=== PATIENT | female | born 1985 | race Caucasian/White ===

== ENCOUNTER → 2017-04-16 | Outpatient (CLI) | payer SELFPAY ==
--- NOTE | 2017-04-17 07:20 | ECHO ---
DATE OF PROCEDURE: 04/16/2017 REFERRING PHYSICIAN: Dr. aKte Zimmer PATIENT LOCATION: Outpatient. REASON FOR CARDIOGRAM: Heart murmur. 2D MEASUREMENT: IVS - 0.77 cm LV - 3.7 cm LVPW - 0.85 cm LA - 3.0 cm Aorta 2.5 cm DOPPLER MEASUREMENTS: Peak velocity across the aortic valve - 1.2 m/s Peak velocity across the LVOT - 0.92 m/s Kay E 0.84, Mitral A - 0.34 with a ratio of 2.5 Maximum tricuspid valve velocity - 2.3 m/s 2D COMMENTS: 1. Normal left ventricular size, wall thickness and normal global left ventricular systolic function. The estimated left ventricular systolic ejection fraction is 60-65%. 2. Normal left atrium. Normal right atrium and right ventricle. 3. The atrial septum appeared to be normal without evidence of defect or shunt. 4. Normal aortic root. 5. No pericardial effusion seen. 6. Aortic valve, mitral valve, tricuspid valve appear to be normal. The proximal pulmonary artery branches and the pulmonic valve were not well visualized. DOPPLER: It detects mild mitral regurgitation, mild tricuspid regurgitation. The calculated pulmonary artery systolic pressure is about 30 mmHg. Assessment of left ventricular diastolic function was normal. IMPRESSION: 1. Normal global left ventricular systolic and diastolic function. 2. Mild mitral regurgitation. 3. Mild tricuspid regurgitation with probably mild pulmonary hypertension. MTDD
== END ==
LOC: M CARPUL 09:54
PROVIDERS: ATTEND Family Medicine
DX: R01.1 Cardiac murmur, unspecified (principal)

== ENCOUNTER → 2018-08-31 | Outpatient (REF) | payer OTHER ==
[2018-09-04 14:15] LABS: HPV HYBRID CAPTURE II Negative (Negative)
== END ==
LOC: M LAB REF 09:10
DX: Z12.31 Encounter for screening mammogram for malignant neoplasm of breast (principal)

== ENCOUNTER → 2018-11-05 | Outpatient (CLI) | payer OTHER ==
--- NOTE | 2018-11-06 02:48 | REP ---
Clinical: Polycystic ovary syndrome . Technique: Transabdominal pelvic ultrasound followed by transvaginal examination for better evaluation of the endometrium and adnexa with color Doppler evaluation of the ovaries. Findings: Bladder is unremarkable and measures 10.3 x 9.9 x 10.2 cm . Normal anteverted uterus measures 8.1 x 4.3 x 5.6 cm . The endometrial complex measures 8.0 mm thickness. No discrete uterine or endometrial abnormalities are appreciated. Bilateral ovaries are normal in appearance. Right ovary measures 2.5 x 1.7 x 2.5 cm ; Left ovary measures 2.8 x 1.3 x 1.7 cm. No pelvic fluid or adnexal mass lesion . Impression: 1. normal pelvic ultrasound. 2. Normal appearance of the bilateral ovaries. Electronically Signed by Garrick Lynn MD 11/06/2018 02:39 A
== END ==
LOC: M RAD 12:43
PROVIDERS: ATTEND Obstetrics & Gynecology
DX: E28.2 Polycystic ovarian syndrome (principal)

== ENCOUNTER → 2019-02-11 | Outpatient (CLI) | payer OTHER ==
--- NOTE | 2019-02-11 19:16 | ECGEPIP ---
Stationary ECG Study [facility] Test Date: 2019-02-11 Pat Name: JUANITA PENA Department: Room: - Gender: F Director [employer]: ANNALISE : 1985 Requested By: Kate Watkins Order Number: [id number] Reading MD: Kristen Durant Measurements Intervals [place] Rate: 64 P: 52 AK: 176 QRS: 72 QRSD: 97 T: 30 QT: 418 QTc: 433 Interpretive Statements SINUS RHYTHM NO PRIOR Electronically Signed On 02-11-2019 19:16:00 EDT by Kristen Durant
== END ==
LOC: M EKG 10:26
PROVIDERS: ATTEND Family Medicine
DX: Z02.89 Encounter for other administrative examinations (principal)